=== PATIENT | male | born 1950 | race Caucasian/White ===

== ENCOUNTER 2021-03-18 13:14 | Inpatient (IN) | payer OTHER ==
--- OUTSIDE RECORDS SUMMARY | 2021-03-18 13:17 | XMS REPORT | Continuity of Care Document ---
:[address] [facility] t Address [address] [place] [address] Care Team Providers Name Role Phone CEDRIC Attending Clinician Unavailable MD ADELIA STEELE Attending Clinician Unavailable ATTAR Attending Clinician Unavailable Only, Test Attending Clinician Unavailable Irene RN Attending Clinician Unavailable Casa Redmond DO Attending Clinician Doctor Unassigned, Name Attending Clinician Unavailable CLEM Attending Clinician Unavailable Evan GARCIA R Attending Clinician Alondra GARCIA Attending Clinician CEDRIC Admitting Clinician Unavailable MD ADELIA STEELE Admitting Clinician Unavailable ATTAR Admitting Clinician Unavailable Problems This patient has no known problems. Allergies, Adverse Reactions, Alerts This patient has no known allergies or adverse reactions. Medications This patient has no known medications. Procedures This patient has no known procedures. Encounters Start End Encounter Admission Attending Care Care Encounter Source Date/Time Date/Time Type Type Clinicians Facility Department ID 2021-01-05 2021-01-05 Outpatient [facility] [id number] 00:00:00 00:00:[address] 2021-01-05 2021-01-05 Outpatient [facility] [id number] 00:00:00 00:00:[address] 2021-01-05 2021-01-05 Outpatient [facility] [id number] 00:00:00 00:00:[address] 2020-12-09 2020-12-10 [id number] 00:00:00 00:00:00 TONEY [address] 2020-12-05 2020-12-05 Outpatient CEDRIC, [facility] [id number] 00:00:00 00:00:00 TONEY [address] 2020-12-05 2020-12-05 Outpatient CEDRIC, [facility] [id number] 00:00:00 00:00:00 TONEY [address] 2020-12-05 2020-12-05 Outpatient CEDRIC, [facility] [id number] [place] 00:00:00 00:00:00 TONEY [address] 2020-11-07 2020-11-07 Outpatient ATTAR, [facility] [id number] 00:00:00 00:00:00 [place] [address] 2020-11-03 2020-11-03 Laboratory Only, [facility] [id number] 14:23:46 14:38:46 Only Test [place] [id number] [place] [id number] [place] [id number] 2020-11-03 2020-11-03 Letter Tari Bonilla [id number] 00:00:00 00:00:00 (Out) [place] [id number] [facility] [id number] 2020-11-03 2020-11-03 Patient Ruy [facility] [id number] 00:00:00 00:00:00 Outreach [facility] [id number] [facility] [id number] [place] [id number] 2020-11-03 2020-11-03 Orders Doctor BRANDI [id number] 00:00:00 00:00:00 Only Unassigned, [place] [id number] [place] [facility] [id number] 2020-10-09 2020-10-09 Outpatient CEDRIC, [facility] [id number] 00:00:00 00:00:00 TONEY [address] 2020-10-09 2020-10-09 Outpatient CEDRIC, [facility] [id number] 00:00:00 00:00:00 TONEY [address] [facility] 2020-09-11 2020-09-11 Outpatient CLEM, [facility] [id number] 00:00:00 00:00:00 DANIELLA 642 [address] i 2020-01-14 2020-01-14 [facility] 1.2.840.114 [id number] 15:18:54 15:28:54 ne Visit Lauro R [facility] [id number] [place] [id number] [place] [id number] [facility] 2020-01-14 2020-01-14 Sly Cantu [facility] [id number] 00:00:00 00:00:00 Management Cleopatra M[facility]ISPEC [id number] [facility] [id number] [place] [id number] [facility] 2019-12-10 2019-12-10 Patient Doctor [facility] [id number] 00:00:00 00:00:00 Secure Msg Unassigned, [place] [id number] [place] [facility] [id number] [place] [id number] [place] [id number] [facility] Results Test Description Test Time Test Comments Results Result Comments Source SARS-CoV-2 (COVID-19) RNA [Presence] in Respiratory sp ecimen by 2020-12-05 17:24:21 TARA with probe detection Test Item Value Reference Range Interpretation Comme nts SARS-CoV-2 (COVID-19) RNA [Presence] in Respiratory Not detected No t-Detected specimen by TARA with probe detection (test code = 05255-7)
--- NOTE | 2021-03-18 14:00 | RAD REPORT ---
EXAM DESCRIPTION: RAD - Chest Single View - 03/18/2021 1:42 pm CLINICAL HISTORY: CONGESTION COMPARISON: Chest Pa And Lat (2 Views) dated 09/05/2018; CHEST PA AND LAT 2 VIEW dated 02/13/2008; CHES T PA AND LAT 2 VIEW dated 08/03/2001 FINDINGS: Diffuse increased prominence of the pulmonary interstitium with areas of more confluent ai rspace disease in the lung bases and right mid lung. Cardiomegaly.No acute osseous abnormality. Diffi cult to exclude small effusions. IMPRESSION: Worsened airspace disease bilaterally which may reflect multifocal pneumonia and/or braulio a.
[2021-03-18 14:17] LABS: Absolute Lymphocytes (CBC) 0.5 K/uL (0.7-4.9); Basophils % 0.2 % (0-1.3); Hematocrit 43.3 % (39.6-49.0); Lymphocytes % 6.4 % (15.3-44.8); MPV 8.9 fL (7.6-11.3); RBC Red Blood Cell Count 4.86 M/uL (4.33-5.43)
[2021-03-18 14:22] LABS: Protime INR 1.15
[2021-03-18] MEDS ORDERED: METHYLPREDNISOLONE 125 MG INJ ONE (14:36)
[2021-03-18] MEDS ORDERED: NA CHLORIDE 0.9% 500 ML ONE (14:36)
[2021-03-18] MEDS ORDERED: NA CHLORIDE 0.9% 250 ML ONE (14:36)
[2021-03-18] MEDS ORDERED: AZITHROMYCIN 500 MG INJ IVPB ONE (14:36)
[2021-03-18] MEDS ORDERED: ENOXAPARIN 80 MG/0.8 ML SQ ONE (14:36)
[2021-03-18 14:48] LABS: Urine Blood Negative (Negative); Urine Glucose Negative (Negative); Urine Protein 2+ (Negative); Urine Specific Gravity >=1.030 (1.005-1.030); Urine pH 5.5 (5.0-7.0)
[2021-03-18 14:53] LABS: Albumin 3.3 g/dL (3.4-5.0); Bilirubin Direct 0.5 mg/dL (0-0.2); C-Reactive Protein 56.7 mg/L (<3.00); Potassium 3.4 mmol/L (3.5-5.1); Protein, Total 7.7 g/dL (6.4-8.2); Troponin (Emerg Dept Use Only) 0.06 ng/mL (0.0-0.045)
[2021-03-18 15:21] LABS: Blood Morphology Comment NOT SEEN (NOT SEEN); Platelet Estimate ADEQ; White Blood Cell Scan OK (OK)
[2021-03-18 15:59] LABS: Urine Bacteria <20 /HPF (NONE SEEN); Urine Mucus LIGHT /HPF (NONE SEEN); Urine RBC <5 /HPF (NONE SEEN)
--- NOTE | 2021-03-18 18:07 | EDPHYS ---
Physician Documentation [facility] Name: Jacque Owens Age: 70 yrs Sex: Male : 1950 Arrival Date: 03/18/2021 Time: 13:21 Bed 28 Private MD: ED Physician Carissa Richardson HPI: 03/18 15:19 This 70 yrs old Male presents to ER via Wheelchair with complaints of COVID+, ma2 Shortness Of Breath, Cough. 15:19 Onset: The symptoms/episode began/occurred gradually, 2 day(s) ago. Associated signs ma2 and symptoms: Pertinent negatives: diaphoresis, hemoptysis, loss of consciousness, nausea. Severity of symptoms: At their worst the symptoms were moderate in the emergency department the symptoms are unchanged. The patient has not experienced similar symptoms in the past. Historical: - Allergies: 13:31 No Known Allergies; ca1 - PMHx: 13:31 Asthma; Hypertensive disorder; ca1 - PSHx: 13:31 heart valve surgery; ca1 - Immunization history:: Client reports having NOT received the Covid vaccine. Pneumococcal vaccine is not up to date, Flu vaccine is not up to date. - Social history:: Smoking status: Patient denies any tobacco usage or history of. - Family history:: not pertinent. ROS: 15:19 Constitutional: Negative for fever, chills, and weight loss. ma2 15:19 All other systems are negative. Exam: 15:19 Constitutional: This is a well developed, well nourished patient who is awake, alert, ma2 and in no acute distress. Head/Face: Normocephalic, atraumatic. Eyes: Pupils equal round and reactive to light, extra-ocular motions intact. Lids and lashes normal. Conjunctiva and sclera are non-icteric and not injected. Cornea within normal limits. Periorbital areas with no swelling, redness, or edema. ENT: Nares patent. No nasal discharge, no septal abnormalities noted. Tympanic membranes are normal and external auditory canals are clear. Oropharynx with no redness, swelling, or masses, exudates, or evidence of obstruction, uvula midline. Mucous membranes moist. Neck: Trachea midline, no thyromegaly or masses palpated, and no cervical lymphadenopathy. Supple, full range of motion without nuchal rigidity, or vertebral point tenderness. No Meningismus. Chest/axilla: Normal chest wall appearance and motion. Nontender with no deformity. No lesions are appreciated. Cardiovascular: Regular rate and rhythm with a normal S1 and S2. No gallops, murmurs, or rubs. Normal PMI, no JVD. No pulse deficits. Abdomen/GI: Soft, non-tender, with normal bowel sounds. No distension or tympany. No guarding or rebound. No evidence of tenderness throughout. Back: No spinal tenderness. No costovertebral tenderness. Full range of motion. Skin: Warm, dry with normal turgor. Normal color with no rashes, no lesions, and no evidence of cellulitis. MS/ Extremity: Pulses equal, no cyanosis. Neurovascular intact. Full, normal range of motion. Neuro: Awake and alert, GCS 15, oriented to person, place, time, and situation. Cranial nerves II-XII grossly intact. Motor strength 5/5 in all extremities. Sensory grossly intact. Cerebellar exam normal. Normal gait. 15:19 Respiratory: mild respiratory distress is noted, Respirations: accessory muscle usage, that is mild, Breath sounds: rhonchi, are scattered, wheezing: Vital Signs: 13:27 BP 109 / 49; Pulse 81; Resp 20 S; Temp 99.2(O); Pulse Ox 64% on R/A; Weight 117.93 kg ca1 (R); Height 6 ft. 1 in. (185.42 cm) (R); Pain 4/10; 13:38 BP 106 / 66; Pulse 69; Resp 22; Pulse Ox 82% on 4 lpm NC; ca1 14:30 BP 113 / 67; Pulse 73; Resp 18; Pulse Ox 87% on 15 lpm NC; ld1 15:30 BP 97 / 51; Pulse 72; Resp 26; Pulse Ox 88% on 15% Venturi mask; ld1 16:15 BP 124 / 58; Pulse 81; Resp 26; Pulse Ox 78% on 15% Venturi mask; ld1 16:47 BP 115 / 66; Pulse 73; Resp 22; Pulse Ox 91% on 50% Non-rebreather mask; ld1 18:00 BP 115 / 61; Pulse 71; Resp 20; Temp 98.2(O); Pulse Ox 88% on NC; Pain 0/10; ld1 19:00 BP 132 / 69; Pulse 72; Resp 18; Pulse Ox 89% on 15 lpm NC; ld1 21:33 BP 117 / 62; Pulse 79; Resp 22; Pulse Ox 84% on 15 lpm NC; ld1 22:59 BP 115 / 60; Pulse 60; Resp 25; Pulse Ox 85% on 21% BiPAP; ld1 23:49 BP 105 / 68; Pulse 59; Resp 26; Pulse Ox 89% on 100% BiPAP; ld1 13:27 Body Mass Index 34.30 (117.93 kg, 185.42 cm) ca1 18:00 Hi Flow \T\ 40 ld1 19:00 HI RICO \T\ 40/100 ld1 21:33 Hi Rico \T\ 40/100 ld1 MDM: 13:46 Patient medically screened. ma2 15:19 Differential diagnosis: Anemia Anxiety Reaction Bronchitis pneumonia, reactive airway ma2 disease, Patient tested positive for Covid 2 days ago. Antibiotic administration: Data reviewed: vital signs, nurses notes, EMS record. 18:04 Response to treatment: the patient's symptoms have markedly improved after treatment. [facility] ED course: patient need to be transferred for hypoxemia and covid pneumonia, we do not have bed in the covid unit in [facility] . 03/18 13:35 Order name: BMP [facility] 03/18 13:35 Order name: Blood Culture Adult (2) [facility] 03/18 13:35 Order name: C-Reactive Protein [facility] 03/18 13:35 Order name: CBC with Diff [facility] 03/18 13:35 Order name: Ferritin [facility] 03/18 13:35 Order name: Flu [facility] 03/18 13:35 Order name: LFT's [facility] 03/18 13:35 Order name: Lactate [facility] 03/18 13:35 Order name: Lipase; Complete Time: 15:25 [facility] 03/18 13:35 Order name: PT-INR; Complete Time: 14:50 [facility] 03/18 13:35 Order name: Procalcitonin; Complete Time: 15:25 [facility] 03/18 13:35 Order name: Ptt, Activated; Complete Time: 14:50 [facility] 03/18 13:35 Order name: Strep; Complete Time: 14:50 [facility] 03/18 13:35 Order name: Troponin (emerg Dept Use Only); Complete Time: 15:25 [facility] 03/18 13:35 Order name: Urine Microscopic Only; Complete Time: 16:47 al2 03/18 13:35 Order name: Basic Metabolic Panel; Complete Time: 15:25 EDMS 03/18 13:35 Order name: Blood Culture [facility] 03/18 13:35 Order name: C-Reactive Protein; Complete Time: 15:25 MS 03/18 13:35 Order name: CBC with Automated Diff; Complete Time: 15:25 MS 03/18 13:35 Order name: Ferritin; Complete Time: 15:25 MS 03/18 13:35 Order name: Influenza Screen (A ; Complete Time: 14:50 EDMS 03/18 13:35 Order name: Liver (Hepatic) Function; Complete Time: 15:25 MS 03/18 13:35 Order name: Lactate; Complete Time: 14:50 MS 03/18 14:13 Order name: Glucose, Ancillary Testing; Complete Time: 14:50 MS 03/18 14:40 Order name: Throat Culture [facility] 03/18 14:47 Order name: Urine Dipstick-Ancillary; Complete Time: 14:50 [facility] 03/18 15:21 Order name: CBC Smear Scan; Complete Time: 15:25 MS 03/19 05:40 Order name: Troponin I [facility] 03/19 05:49 Order name: CBC with Automated Diff EDDE 03/19 05:50 Order name: Comprehensive Metabolic Panel [facility] 03/18 13:35 Order name: CXR XRAY; Complete Time: 14:06 al03/18 13:35 Order name: EKG; Complete Time: 13:35 al03/18 13:35 Order name: Cardiac monitoring; Complete Time: 14:14 03/18 13:35 Order name: Droplet/Contact Precautions; Complete Time: 14:14 al03/18 13:35 Order name: EKG - Nurse/Tech; Complete Time: 14:14 03/18 13:35 Order name: IV Start; Complete Time: 14:04 03/18 13:35 Order name: Labs collected and sent; Complete Time: 14:10 03/18 13:35 Order name: O2 Per Protocol; Complete Time: 14:04 al03/18 13:35 Order name: O2 Sat Monitoring; Complete Time: 14:04 03/18 13:35 Order name: Urine Dipstick-Ancillary (obtain specimen); Complete Time: 14:59 [facility] 03/18 16:22 Order name: Oxygen: via HFNC 100%; Complete Time: 16:43 [facility] 03/19 05:50 Order name: Lipid Profile [facility] 03/19 05:50 Order name: C-Reactive Protein [facility] 03/19 05:50 Order name: T4 Free [facility] 03/19 05:50 Order name: Magnesium [facility] 03/19 05:50 Order name: Thyroid Stimulating Hormone [facility] 03/19 05:50 Order name: Ferritin [facility] 03/19 06:36 Order name: Procalcitonin [facility] 03/19 08:04 Order name: US EDDE Administered Medications: 14:25 Drug: SOLU-Medrol (methylPrednisoLONE) 125 mg Route: IVP; Site: left antecubital; ld1 14:25 Drug: NS 0.9% 500 ml Route: IV; Rate: bolus; Site: left antecubital; ld1 14:25 Drug: AZITHromycin 500 mg Route: IVPB; Infused Over: 1 hrs; Site: left antecubital; ld1 14:25 Drug: Lovenox (enoxaparin) 80 mg Route: Sub-Q; Site: abdomen; ld1 15:51 Follow up: Response: No adverse reaction ld1 16:43 Drug: Albuterol HFA Inhaler 2 puffs Route: Inhalation; ld1 Disposition Summary: 03/18/21 18:38 Hospitalization Ordered Hospitalization Status: Inpatient Admission ma2 Provider: Zackery Thompson ma2 Condition: Stable(03/18/21 18:38) ma2 Problem: new(03/18/21 18:38) ma2 Symptoms: are unchanged(03/18/21 18:38) ma2 Bed/Room Type: Standard [facility] Location: Intensive Care Unit(03/19/21 14:42) ja1 Room Assignment: 1-(03/19/21 14:42) ja Diagnosis - Other pneumonia, unspecified organism - with covid - 19 ma2 Forms: - Medication Reconciliation Form ma2 - SBAR form ma2 Signatures: Dispatcher [employer] [facility] Onel Huang, LACEY-C PANEL BEATER-Shahbaz1 Kwame Gerard RN RN ja1 Carissa Richardson MD MD ma2 Saira Owen, RN RN ca1 Laura Kevin RN RN ld1 Corrections: (The following items were deleted from the chart) 13:32 13:31 Allergies: Aspirin; ca1 ca1 14:25 13:35 [place] ordered. ma2 ld1 18:37 18:07 OSH ma2 ma2 18:37 18:07 Other Acute Care Facility al2 ma2 18:37 18:07 Higher level of care al2 ma2 18:37 18:07 Stable ma2 ma2 18:37 18:07 new al2 ma2 18:37 18:07 are unchanged ma2 ma2 18:37 18:07 Other viral pneumonia - with + COVID - 19 ma2 ma2 18:37 18:07 Hypoxemia ma2 ma2 20:54 18:38 Telemetry/MedSurg (Inpatient) al2 la1 20:54 18:38 ma2 la1 03/19 14:42 03/18 20:54 [facility] HOLD [place] [id number] 03/19 14:42 03/18 20:54 ERHOLD- [place] [address]
--- NOTE | 2021-03-18 18:07 | ER ---
Nurse's Notes [facility] Name: Jacque Owens Age: 70 yrs Sex: Male : 1950 Arrival Date: 03/18/2021 Time: 13:21 Bed 28 Private MD: Diagnosis: Other pneumonia, unspecified organism-with covid - 19 Presentation: 03/18 13:27 Chief complaint: Patient states: Covid + . S/S 03/10/2021. Cough and SOB ca1 worsening. Coronavirus screen: Client reports previous positive COVID test result. Date of collection: March 08, 2021. Ebola Screen: Patient negative for fever greater than or equal to 101.5 degrees Fahrenheit, and additional compatible Ebola Virus Disease symptoms Patient denies exposure to infectious person. Patient denies travel to an Ebola-affected area in the 21 days before illness onset. No symptoms or risks identified at this time. Initial Sepsis Screen: Does the patient meet any 2 criteria? RR > 20 per min. Does the patient have a suspected source of infection? Yes: Productive cough/pneumonia If YES to both, name of provider notified: Carissa Richardson MD. Risk Assessment: Do you want to hurt yourself or someone else? Patient reports no desire to harm self or others. Onset of symptoms was March 10, 2021. 13:27 Method Of Arrival: Wheelchair ca1 13:27 Acuity: ANT 2 ca1 Historical: - Allergies: 13:31 No Known Allergies; ca1 - PMHx: 13:31 Asthma; Hypertensive disorder; ca1 - PSHx: 13:31 heart valve surgery; ca1 - Immunization history:: Client reports having NOT received the Covid vaccine. Pneumococcal vaccine is not up to date, Flu vaccine is not up to date. - Social history:: Smoking status: Patient denies any tobacco usage or history of. - Family history:: not pertinent. Screenin:05 Abuse screen: Denies threats or abuse. Denies injuries from another. Nutritional ld1 screening: No deficits noted. Tuberculosis screening: No symptoms or risk factors identified. Fall Risk None identified. Assessment: 14:05 General: Appears in no apparent distress. comfortable, Behavior is calm, cooperative, ld1 appropriate for age. Pain: Denies pain. Neuro: Level of Consciousness is awake, alert, obeys commands, Oriented to person, place, time, situation. Cardiovascular: Capillary refill < 3 seconds Patient's skin is warm and dry. Rhythm is sinus rhythm. Respiratory: Airway is patent Respiratory effort is even, unlabored, Respiratory pattern is regular, symmetrical, GI: Abdomen is round non-distended. : No signs and/or symptoms were reported regarding the genitourinary system. EENT: No signs and/or symptoms were reported regarding the EENT system. Derm: No signs and/or symptoms reported regarding the dermatologic system. Musculoskeletal: No signs and/or symptoms reported regarding the musculoskeletal system. 15:00 Reassessment: Patient appears in no apparent distress at this time. Patient and/or ld1 family updated on plan of care and expected duration. Pain level reassessed. Patient is alert, oriented x 3, equal unlabored respirations, skin warm/dry/pink. 16:00 Reassessment: Patient appears in no apparent distress at this time. RT at bedside. ld1 16:44 Reassessment: Patient appears in no apparent distress at this time. No changes from ld1 previously documented assessment. Patient and/or family updated on plan of care and expected duration. Pain level reassessed. Patient is alert, oriented x 3, equal unlabored respirations, skin warm/dry/pink. Patient denies pain at this time. 18:00 Reassessment: Patient appears in no apparent distress at this time. No changes from ld1 previously documented assessment. Patient and/or family updated on plan of care and expected duration. Pain level reassessed. Patient is alert, oriented x 3, equal unlabored respirations, skin warm/dry/pink. Patient denies pain at this time. 19:30 Reassessment: Patient appears in no apparent distress at this time. No changes from ld1 previously documented assessment. Patient and/or family updated on plan of care and expected duration. Pain level reassessed. 20:21 Reassessment: RT at bedside. ld1 21:33 Reassessment: Patient appears in no apparent distress at this time. Patient and/or ld1 family updated on plan of care and expected duration. Pain level reassessed. Patient is alert, oriented x 3, equal unlabored respirations, skin warm/dry/pink. Laying in bed talking on phone. Denies concerns at this time. 22:59 Reassessment: Patient appears in no apparent distress at this time. No changes from ld1 previously documented assessment. Patient and/or family updated on plan of care and expected duration. Pain level reassessed. Patient is alert, oriented x 3, equal unlabored respirations, skin warm/dry/pink. Patient denies pain at this time. 23:49 Reassessment: Patient appears in no apparent distress at this time. No changes from ld1 previously documented assessment. Patient and/or family updated on plan of care and expected duration. Pain level reassessed. Pt resting in bed right now. No signs of distress. RR 26. Vital Signs: 13:27 BP 109 / 49; Pulse 81; Resp 20 S; Temp 99.2(O); Pulse Ox 64% on R/A; Weight 117.93 kg ca1 (R); Height 6 ft. 1 in. (185.42 cm) (R); Pain 4/10; 13:38 BP 106 / 66; Pulse 69; Resp 22; Pulse Ox 82% on 4 lpm NC; ca1 14:30 BP 113 / 67; Pulse 73; Resp 18; Pulse Ox 87% on 15 lpm NC; ld1 15:30 BP 97 / 51; Pulse 72; Resp 26; Pulse Ox 88% on 15% Venturi mask; ld1 16:15 BP 124 / 58; Pulse 81; Resp 26; Pulse Ox 78% on 15% Venturi mask; ld1 16:47 BP 115 / 66; Pulse 73; Resp 22; Pulse Ox 91% on 50% Non-rebreather mask; ld1 18:00 BP 115 / 61; Pulse 71; Resp 20; Temp 98.2(O); Pulse Ox 88% on NC; Pain 0/10; ld1 19:00 BP 132 / 69; Pulse 72; Resp 18; Pulse Ox 89% on 15 lpm NC; ld1 21:33 BP 117 / 62; Pulse 79; Resp 22; Pulse Ox 84% on 15 lpm NC; ld1 22:59 BP 115 / 60; Pulse 60; Resp 25; Pulse Ox 85% on 21% BiPAP; ld1 23:49 BP 105 / 68; Pulse 59; Resp 26; Pulse Ox 89% on 100% BiPAP; ld1 13:27 Body Mass Index 34.30 (117.93 kg, 185.42 cm) ca1 18:00 Hi Flow \T\ 40 ld1 19:00 HI RICO \T\ 40/100 ld1 21:33 Hi Rico \T\ 40/100 ld1 ED Course: 13:21 Patient arrived in ED. mr 13:31 Triage completed. ca1 13:31 Arm band placed on right wrist. ca1 13:32 Patient placed in an exam room, on a stretcher, on oxygen, on telemetry monitor, on pulse ca1 oximetry. 13:33 Carissa Richardson MD is Attending Physician. ma2 13:33 Oxygen administration via nasal cannula \T\ 4L/min Response to oxygen therapy: symptoms ca1 improved. 13:42 CXR XRAY In Process Unspecified. EDMS 14:04 Saira Owen, ANDREW is Primary Nurse. ca1 14:05 Patient has correct armband on for positive identification. Placed in gown. Bed in low ld1 position. Call light in reach. Side rails up X2. quality assurance monitor on. Pulse ox on. NIBP on. Door closed. Noise minimized. Warm blanket given. 14:05 No provider procedures requiring assistance completed. Inserted saline lock: 20 gauge ld1 in left antecubital area, using aseptic technique. Blood collected. 14:11 Initial lab(s) drawn, by me, sent to lab. EKG done, by ED staff, reviewed by Carissa Richardson MD Flu and/or RSV swab sent to lab. Strep swab sent to lab. Inserted saline lock: 20 gauge in left antecubital area, using aseptic technique. Blood collected. 14:13 Liver (Hepatic) Function Sent. 5 14:13 Lactate Sent. 5 14:13 Ferritin Sent. 5 14:13 Influenza Screen (A Sent. 5 14:13 CBC with Automated Diff Sent. 5 14:13 Basic Metabolic Panel Sent. 5 14:13 Blood Culture Sent. 5 14:13 C-Reactive Protein Sent. 5 14:13 BMP Sent. 5 14:13 Blood Culture Adult (2) Sent. 5 14:13 C-Reactive Protein Sent. 5 14:13 CBC with Diff Sent. 5 14:13 Ferritin Sent. 5 14:13 Flu Sent. 5 14:13 LFT's Sent. 5 14:14 Lactate Sent. 5 14:14 Lipase Sent. 5 14:14 PT-INR Sent. 5 14:14 Procalcitonin Sent. [facility] 14:14 Ptt, Activated Sent. [facility] 14:14 Strep Sent. [facility] 14:14 Troponin (emerg Dept Use Only) Sent. 5 15:09 Inserted saline lock: 22 gauge in right antecubital area, using aseptic technique. 5 Patient did not have IV access during this emergency room visit. IV discontinued. 15:57 daughter [phone]. ct 16:26 initiated transfer to [facility] and [facility], all denied due mt to being at full capacity. 16:26 initiated transfer to [facility]. mt 16:43 Laura Kevin, ANDREW is Primary Nurse. ld1 17:01 [facility] denied due to full capacity. ct 18:37 Zackery Thompson MD is Hospitalizing Provider. ma2 Administered Medications: 14:25 Drug: SOLU-Medrol (methylPrednisoLONE) 125 mg Route: IVP; Site: left antecubital; ld1 14:25 Drug: NS 0.9% 500 ml Route: IV; Rate: bolus; Site: left antecubital; ld1 14:25 Drug: AZITHromycin 500 mg Route: IVPB; Infused Over: 1 hrs; Site: left antecubital; ld1 14:25 Drug: Lovenox (enoxaparin) 80 mg Route: Sub-Q; Site: abdomen; ld1 15:51 Follow up: Response: No adverse reaction ld1 16:43 Drug: Albuterol HFA Inhaler 2 puffs Route: Inhalation; ld1 Outcome: 18:07 ER care complete, transfer ordered by . ma2 18:38 Decision to Hospitalize by Provider. tn2 03/19 15:38 Patient left the ED. [facility] Signatures: Dispatcher [employer] EDGA Dm Nereyda NuñezCris Odilia Glover mt, Mohammad, MD MD ma2 Acob, Cheryl, RN RN ca1 Laura Kevin RN RN ld1 Corrections: (The following items were deleted from the chart) 03/18 13:32 13:31 Allergies: Aspirin; ca1 ca1 13:39 13:27 Ebola Screen: Patient negative for fever greater than or equal to 101.5 degrees ca1 Fahrenheit, and additional compatible Ebola Virus Disease symptoms Patient denies exposure to infectious person. Patient denies travel to an Ebola-affected area in the 21 days before illness onset. No symptoms or risks identified at this time. ca1 13:39 13:27 Initial Sepsis Screen: Does the patient meet any 2 criteria? No. Patient's ca1 initial sepsis screen is negative. Does the patient have a suspected source of infection? No. Patient's initial sepsis screen is negative. ca1 13:41 13:38 BP 106 / 66; Pulse 69bpm; Resp 22bpm; Pulse Ox 77% 4 lpm Nasal Cannula; ca1 ca1 23:52 23:49 Pulse 76bpm; Resp 19bpm; Pulse Ox 100% RA; ld1 ld1
--- NOTE | 2021-03-18 21:14 | P.HP ---
Certification for Inpatient Patient admitted to: Inpatient With expected LOS: >2 Midnights Patient will require the following post-hospital care: None Practitioner: I am a practitioner with admitting privileges, knowledge of patient current condition, hospital course, and medical plan of care. Services: Services provided to patient in accordance with Admission requirements found in Title 42 Section 412.3 of the Code of Federal Regulations Patient History Date of Service: 03/18/21 Primary Care Provider: Unknown, cardiology Dr. Pritchett Reason for admission: COVID-19 pneumonia History of Present Illness: 70-year-old male with history of hypertension, asthma, valve replacement approximately 1 month ago presents the emergency department for shortness of breath. Patient reports testing positive for Covid on 03/11/2021. Upon arrival to the [place] apartment patient was saturating 64% on room air, patient was placed on high flow oxygen, currently saturating between 88 and 92% on 100% FiO2 at 40 L on high flow. Labs were significant for potassium 3.4 BUN 33 GFR 66 ferritin 4083 AST 131 ALT 123 troponin 0 0.06 C-reactive protein 56.7 procalcitonin 0.08 white blood cell count within normal limits. Patient given Solu-Medrol in the emergency department, ED provider wishes to admit for further evaluation and management. Attempted transfer to tertiary centers but was declined due to capacity. Chest x-ray demonstrates multifocal pneumonia, patient with history of pulmonary fibrosis. Discussed advanced directives with patient at length, at this time we will proceed with full code, patient to make further decisions about wishes for possible DO NOT INTUBATE in the future. 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 moist/pink, EOMI, Sclerae nonicteric Neck: Supple, 2+ carotid pulse no bruit, No LAD, Without JVD or thyroid abnormality Respiratory: Diminished, Other (Tachypnea, dyspnea) Cardiovascular: Regular rate/rhythm, Normal S1 S2 Gastrointestinal: Normal bowel sounds, No tenderness Musculoskeletal: No tenderness Integumentary: No rashes Neurological: Normal gait, Normal speech, Normal strength at 5/5 x4 extr, Normal tone, Normal affect Lymphatics: No axilla or inguinal lymphadenopathy - Studies Laboratory Data (last 24 hrs) 03/18/21 14:04: PT 13.3 H, INR 1.15, APTT 25.2 03/18/21 14:04: WBC 7.30, Hgb 14.8, Hct 43.3, Plt Count 169 03/18/21 14:04: Sodium 136, Potassium 3.4 L, BUN 33 H, Creatinine 1.10, Glucose 103, Total Bilirubin 1.0, AST 131 H, ALT 123 H, Alkaline Phosphatase 93, Lipase 50 L Microbiology Data (last 24 hrs): 03/18/21 14:08 Nasopharnyx Influenza Type A Antigen Screen - Final 03/18/21 14:08 Nasopharnyx Influenza Type B Antigen Screen - Final 03/18/21 14:08 Throat Group A Streptococcus Rapid Screen - Final Assessment and Plan - Plan Assessment: Acute hypoxic respiratory failure secondary to bilateral COVID-19 pneumonia complicated with history of asthma/pulmonary fibrosis Hypertension History of valve replacement Plan: Acute hypoxic respiratory failure secondary to bilateral COVID-19 pneumonia complicated with history of asthma/pulmonary fibrosis: Pulmonology consulted, continue with supplemental oxygen as needed including BiPAP and high flow oxygen. Continue with IV steroids, oral supplements. DVT prophylaxis Lovenox 40 g again once daily. Continue with daily aspirin as well. Patient LFTs mildly elevated, likely not candidate at this time for remdesivir or barcitinib. Appreciate further input from pulmonology. Patient with high levels of oxygen requirement on admission, prognosis guarded, this was discussed with patient at this time continue as full code but he is questioning whether he would like to be on a ventilator. We will need to readdress this at a later time. Hypertension: Obtain continue medications as appropriate. History of valve replacement: Obtain continue medications, likely aortic valve repair but patient poor historian, unsure of this. Will obtain continue medications, appears stable this time. Will trend troponin as first 1 was very mildly elevated. Consult cardiology as necessary. DVT PPX: Lovenox Code status: Full codepatient "thinking about" if he wants to be on a ventilator if this was required. We will need to readdress. Discharge Plan: Home Plan to discharge in: Greater than 2 days - Advance Directives Does patient have a Living Will: No Does patient have a Durable POA for Healthcare: No - Code Status/Comfort Care Code Status Assessed: Yes (Full code) Time Spent Managing Pts Care (In Minutes): 55
[2021-03-19] MEDS ORDERED: MELATONIN 5 MG TABLET PO PRN (01:44)
[2021-03-19] MEDS ORDERED: ONDANSETRON 4 MG/2 ML VIAL IV PRN (01:44)
[2021-03-19] MEDS ORDERED: BENZONATATE 100 MG CAP PO ONE (02:39)
[2021-03-19] MEDS: BENZONATATE 100 MG CAP PO PRN (02:45)
[2021-03-19 05:24] LABS: Absolute Lymphocytes (CBC) 0.6 K/uL (0.7-4.9); Basophils % 0.1 % (0-1.3); Hematocrit 41.6 % (39.6-49.0); Lymphocytes % 12.9 % (15.3-44.8); MPV 10.1 fL (7.6-11.3); RBC Red Blood Cell Count 4.68 M/uL (4.33-5.43)
[2021-03-19 05:50] LABS: ALT/SGPT 156 U/L (12-78); AST/SGOT 184 U/L (15-37); Albumin 2.9 g/dL (3.4-5.0); Alkaline Phosphatase 97 U/L (45-117); BUN Blood Urea Nitrogen 33 mg/dL (7-18); Bicarbonate 26 mmol/L (21-32); Bilirubin Total 0.7 mg/dL (0.2-1.0); Ferritin 5254.3 ng/mL (26-388); Glucose Level 126 mg/dL (74-106); HDL Cholesterol 36 mg/dL (40-60); LDL Cholesterol, Calculated 86 (<130); Magnesium 2.6 mg/dL (1.8-2.4); Potassium 3.7 mmol/L (3.5-5.1); Sodium Level 140 mmol/L (136-145); Thyroid Stimulating Hormone 0.386 uIU/mL (0.360-3.740)
--- NOTE | 2021-03-19 06:39 | P.PN ---
Subjective Date of Service: 03/19/21 Primary Care Provider: Unknown, cardiology Dr. Pritchett Chief Complaint: COVID-19 pneumonia Subjective: Improving (90-94% on 100% FIO2 BIPAP, feeling a little better. ferritin increased) Review of Systems 10-point ROS is otherwise unremarkable Physical Examination - Studies Laboratory Data (last 24 hrs) 03/18/21 14:04: PT 13.3 H, INR 1.15, APTT 25.2 03/18/21 14:04: WBC 7.30, Hgb 14.8, Hct 43.3, Plt Count 169 03/18/21 14:04: Sodium 136, Potassium 3.4 L, BUN 33 H, Creatinine 1.10, Glucose 103, Total Bilirubin 1.0, AST 131 H, ALT 123 H, Alkaline Phosphatase 93, Lipase 50 L Microbiology Data (last 24 hrs): 03/18/21 14:08 Nasopharnyx Influenza Type A Antigen Screen - Final 03/18/21 14:08 Nasopharnyx Influenza Type B Antigen Screen - Final 03/18/21 14:08 Throat Group A Streptococcus Rapid Screen - Final Assessment & Plan Physician Review Additional Text: Physical Exam General: Alert, NAD, AAOx3 HEENT: normal conjunctiva, BIPAP mask in place Respiratory: Diminished, nonlabored on BIPAP: FiO2 100% Cardiovascular: Regular rate/rhythm, Normal S1 S2 Gastrointestinal: Soft, nontender, nondistended Musculoskeletal: No tenderness Integumentary: No rashes Problem list Acute hypoxic respiratory failure secondary to bilateral COVID-19 pneumonia complicated with history of asthma/pulmonary fibrosis Hypertension History of valve replacement -Significantly elevated ferritin over 5000. -Patient with prior pulmonary history, high risk for complicated Covid -Pharmacy consulted for baricitinib -Continue treatment per Covid protocol, IV steroids, oral supplements, DVT prophylaxis -Wean oxygen as tolerated -Pulmonology consulted -currently full code -trop downtrending - no chest pain/pressure, likely demand ischemia in setting of covid / hypoxia Dispo: anticipate hospitalization > 2days Time Spent Managing Pts Care (In Minutes): 45
--- NOTE | 2021-03-19 08:04 | RAD REPORT ---
EXAM DESCRIPTION: US - Liver Only - 03/19/2021 7:07 am CLINICAL HISTORY: elevated LFT COMPARISON: No comparisons FINDINGS: The liver demonstrates diffuse fatty infiltration.No focal liver lesion or intrahepatic bi liary dilatation.No evidence of portal vein thrombosis. IMPRESSION: Hepatic steatosis, otherwise unremarkable.
[2021-03-19] MEDS: METHYLPREDNISOLONE 40 MG INJ IV SCH ×3 (08:15→20:11)
[2021-03-19] MEDS: ASCORBIC ACID 500 MG TABLET PO SCH ×4 (08:15→20:11)
[2021-03-19] MEDS: ZINC SULFATE 220 MG CAP PO SCH (08:15)
[2021-03-19] MEDS: VITAMIN D 1000 UNIT TAB PO SCH (08:16)
[2021-03-19] MEDS: THIAMINE HCL 100 MG TABLET PO SCH (08:16)
[2021-03-19] MEDS ORDERED: ZINC SULFATE 220 MG CAP ONE (08:20)
[2021-03-19] MEDS ORDERED: VITAMIN D 1000 UNIT TAB ONE (08:21)
[2021-03-19] MEDS ORDERED: ASCORBIC ACID 500 MG TABLET ONE ×3 (08:21→11:56)
[2021-03-19] MEDS ORDERED: THIAMINE HCL 100 MG TABLET ONE (08:21)
[2021-03-19] MEDS ORDERED: ASPIRIN EC 81 MG TAB PO ONE (08:21)
[2021-03-19] MEDS ORDERED: METHYLPREDNISOLONE 40 MG INJ ONE ×2 (08:36→13:51)
[2021-03-19] MEDS ORDERED: BARICITINIB 2 MG TABLET PO SCH (09:00)
[2021-03-19] MEDS ORDERED: ASPIRIN EC 81 MG TAB PO SCH (09:00)
--- NOTE | 2021-03-19 11:02 | EKG ---
Test Date: 2021-03-18 Test Time: 13:52:35 Seaweed Harvester: MARIA INES MEASUREMENT RESULTS: Intervals: Rate: 73 VT: 182 QRSD: 104 QT: 430 QTc: 473 Pickrell: P: 74 VT: 182 QRS: 51 T: 37 INTERPRETIVE STATEMENTS: Sinus rhythm with occasional premature ventricular complexes Otherwise normal ECG No previous ECG available for comparison Electronically Signed On 03-19-21 10:58:55 CDT by Kvng Bailey
[2021-03-19] MEDS ORDERED: POTASSIUM CL SA 10 MEQ TAB PO ONE ×2 (11:07→11:55)
[2021-03-19] MEDS: ATORVASTATIN 40 MG TAB PO SCH (20:11)
[2021-03-20] MEDS: BENZONATATE 100 MG CAP PO PRN (01:35)
[2021-03-20 03:59] VITALS: BMI 33.5
[2021-03-20] MEDS: HYDROCODONE/CHLORPHEN 5 ML/OSYR PO PRN (05:06)
[2021-03-20 05:30] LABS: Absolute Lymphocytes (CBC) 0.5 K/uL (0.7-4.9); Basophils % 0.1 % (0-1.3); Hematocrit 41.8 % (39.6-49.0); Lymphocytes % 4.3 % (15.3-44.8); MPV 9.2 fL (7.6-11.3); RBC Red Blood Cell Count 4.66 M/uL (4.33-5.43)
[2021-03-20 06:17] LABS: ALT/SGPT 147 U/L (12-78); AST/SGOT 143 U/L (15-37); Albumin 2.8 g/dL (3.4-5.0); Alkaline Phosphatase 108 U/L (45-117); BUN Blood Urea Nitrogen 30 mg/dL (7-18); Bicarbonate 29 mmol/L (21-32); Bilirubin Total 0.8 mg/dL (0.2-1.0); Ferritin 4313.9 ng/mL (26-388); Glucose Level 127 mg/dL (74-106); Magnesium 2.5 mg/dL (1.8-2.4); Potassium 3.9 mmol/L (3.5-5.1); Protein, Total 6.7 g/dL (6.4-8.2); Sodium Level 142 mmol/L (136-145)
--- NOTE | 2021-03-20 07:20 | RAD REPORT ---
EXAM DESCRIPTION: RAD - Chest Single View - 03/20/2021 6:10 am CLINICAL HISTORY: COVID-19 pneumonia COMPARISON: March 18 TECHNIQUE: AP portable chest image was obtained 03/20/2021 6:10 am . FINDINGS: Diffuse airspace opacification is again noted with relative sparing of the left upper lung field. Pattern is not clearly different when adjusting for technique differences. Subtle increase in lung parenchymal density is believed to be the affects of under penetrated technique and more shallo w inspiratory effort. Heart size is prominent but stable. No vascular engorgement. Trachea is midline. No measurable pleur al effusion and no pneumothorax. No acute bony abnormality seen. No acute aortic findings suspected. IMPRESSION: Diffuse COVID-19 pneumonia pattern not clearly different from March 18 imaging.
[2021-03-20] MEDS ORDERED: POTASSIUM CL SA 10 MEQ TAB PO ONE (08:00)
[2021-03-20] MEDS: ZINC SULFATE 220 MG CAP PO SCH (08:16)
[2021-03-20] MEDS: VITAMIN D 1000 UNIT TAB PO SCH (08:16)
[2021-03-20] MEDS: ASCORBIC ACID 500 MG TABLET PO SCH ×4 (08:17→20:33)
[2021-03-20] MEDS: THIAMINE HCL 100 MG TABLET PO SCH (08:17)
[2021-03-20] MEDS: APIXABAN 5 MG TABLET PO SCH ×2 (08:17→20:32)
[2021-03-20] MEDS: METHYLPREDNISOLONE 40 MG INJ IV SCH ×3 (08:17→20:47)
--- NOTE | 2021-03-20 09:39 | P.CNS ---
Date of Consult: 03/20/21 (Pt agree to TV) Primary Care Provider: Unknown, cardiology Dr. Pritchett Chief Complaint: COVID-19 pneumonia History of Present Illness: Age 70 AW pneumonia from COVI, resp failureacute, pos 03/11/ 100% Fio2 Allergies No Known Allergies Allergy (Unverified 03/19/21 01:43) Home Medications: Albuterol Inhaler [Ventolin Inhaler*] 2 puff IH TID PRN 03/19/21 Amlodipine Besylate 1 tab PO BEDTIME 03/19/21 Aspirin [Aspirin EC 81 MG] 1 tab PO DAILY 03/19/21 Atorvastatin Calcium 1 tab PO DAILY 03/19/21 Fluticasone [Flonase 50MCG Nasal [place]*] 2 sprays SILVANA DAILY 03/19/21 Furosemide 1 tab PO DAILY 03/19/21 Potassium Chloride 1 tab PO DAILY 03/19/21 - Past Medical/Surgical History Diabetic: No -: Hypertension -: Asthma -: Rib Fx from Fall 2 yrs ago -: Valve replacement 2020 Psychosocial/ Personal History: 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 Extensive changes on CXRY, Jett EPAP 12-15, Sat 90%, Elevated LFT, not a candidate for Barcitinib, Will await for PFT to improve, CRP elevated OA. US fatty liver
--- NOTE | 2021-03-20 10:39 | P.PN ---
Subjective Date of Service: 03/20/21 Primary Care Provider: Unknown, cardiology Dr. Pritchett Chief Complaint: COVID-19 pneumonia Subjective: Other (Patient feels like he is breathing a little bit more comfortably today. Still requiring 100% FiO2 ferritin remains significantly elevated but with slight improvement today. Patient states today that he has decided he does not want to be intubated even if it were to mainline for .) Review of Systems 10-point ROS is otherwise unremarkable Physical Examination - Vital Signs Temperature: 96.8 F Blood Pressure: 104/64 Pulse: 63 Respirations: 24 Pulse Ox (%): 87 - Studies Microbiology Data (last 24 hrs): 03/18/21 14:08 Throat Culture & Sensitivity - Final NORMAL UPPER RESPIRATORY CECELIA GROWN. 03/18/21 14:45 Blood - Blood Anaerobic Blood Culture - Final Assessment & Plan Physician Review Additional Text: Physical Exam General: Alert, NAD, AAOx3 HEENT: normal conjunctiva, BIPAP mask in place Respiratory: Diminished, b/l crackles, nonlabored on BIPAP: FiO2 100% Cardiovascular: Regular rate/rhythm, Normal S1 S2 Gastrointestinal: Soft, nontender, nondistended Musculoskeletal: No tenderness Integumentary: No rashes Problem list Acute hypoxic respiratory failure secondary to bilateral COVID-19 pneumonia complicated with history of asthma/pulmonary fibrosis Hypertension Hepatic steatosis History of valve replacement -Significantly elevated ferritin over 5000 with slight improvement today -Patient with prior pulmonary history, high risk for complicated Covid -Pharmacy consulted for baricitinib - not candidate -also with mildly elevated LFTs -Continue treatment per Covid protocol, IV steroids, oral supplements, DVT prophylaxis -Wean oxygen as tolerated -Pulmonology consulted -DO NOT INTUBATE -trop downtrending - no chest pain/pressure, likely demand ischemia in setting of covid / hypoxia Dispo: anticipate hospitalization > 2days Time Spent Managing Pts Care (In Minutes): 40
[2021-03-20] MEDS: SPIRONOLACTONE 25 MG TABLET PO SCH (12:29)
[2021-03-20 15:47] LABS: Arterial Blood Carboxyhemoglob 0.6 % (0-1.5); Blood O2 Saturation 92.4 % (92-98.5)
[2021-03-20] MEDS: ATORVASTATIN 40 MG TAB PO SCH (20:32)
[2021-03-20] MEDS: FAMOTIDINE 20 MG TAB PO SCH (20:33)
[2021-03-21 05:15] LABS: Absolute Lymphocytes (CBC) 0.4 K/uL (0.7-4.9); Basophils % 0.1 % (0-1.3); Hematocrit 42.7 % (39.6-49.0); MPV 9.7 fL (7.6-11.3); RBC Red Blood Cell Count 4.79 M/uL (4.33-5.43)
[2021-03-21 05:52] LABS: ALT/SGPT 167 U/L (12-78); AST/SGOT 129 U/L (15-37); Albumin 2.8 g/dL (3.4-5.0); Alkaline Phosphatase 133 U/L (45-117); BUN Blood Urea Nitrogen 28 mg/dL (7-18); Bicarbonate 30 mmol/L (21-32); Ferritin 3781.6 ng/mL (26-388); Glucose Level 124 mg/dL (74-106); Magnesium 2.4 mg/dL (1.8-2.4); Potassium 4.2 mmol/L (3.5-5.1); Protein, Total 6.5 g/dL (6.4-8.2); Sodium Level 144 mmol/L (136-145)
--- NOTE | 2021-03-21 07:57 | P.PN ---
Subjective Date of Service: 03/21/21 Primary Care Provider: Unknown, cardiology Dr. Pritchett Chief Complaint: COVID-19 pneumonia Subjective: Other (feels like breathing more easily, FiO2 90-100%, no new complaints, inflammatory markers improved, d-dimer significant increased.) Review of Systems 10-point ROS is otherwise unremarkable Physical Examination - Vital Signs Temperature: 97.6 F Blood Pressure: 117/75 Pulse: 62 Respirations: 29 Pulse Ox (%): 91 - Studies Microbiology Data (last 24 hrs): 03/18/21 14:08 Throat Culture & Sensitivity - Final NORMAL UPPER RESPIRATORY CECELIA GROWN. Assessment & Plan Physician Review Additional Text: Physical Exam General: AAOx3, laying on side HEENT: normal conjunctiva, BIPAP mask in place Respiratory: Diminished bilaterally, b/l crackles, nonlabored on BIPAP: FiO2 100% Cardiovascular: Regular rate/rhythm, Normal S1 S2, trace b/l pedal edema Gastrointestinal: Soft, nontender, nondistended Musculoskeletal: No tenderness Integumentary: No rashes Problem list Acute hypoxic respiratory failure secondary to bilateral COVID-19 pneumonia complicated with history of asthma/possible pulmonary fibrosis Hypertension Hepatic steatosis History of valve replacement earlier this year -Significantly elevated ferritin over 5000, downtrending, CRP improving -Patient with prior pulmonary history - asthma, he has always been concerned for lung issues due to 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 working 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, high risk for complicated Covid -Pharmacy consulted for baricitinib - not candidate due to not significantly elevated CRP and also with mildly elevated LFTs -Continue treatment per Covid protocol, IV steroids, oral supplements, DVT prophylaxis -Wean oxygen as tolerated -Pulmonology consulted, added spironolactone 03/20, ivermectin 03/21 -patient states he does not want to be intubated -CXR worsening -d-dimer significantly increased, on eliquis -on lasix at home, will start daily IV lasix 40mg today -trop downtrending - no chest pain/pressure, likely demand ischemia in setting of covid / hypoxia Dispo: anticipate hospitalization > 2days Time Spent Managing Pts Care (In Minutes): 40
[2021-03-21] MEDS: METHYLPREDNISOLONE 40 MG INJ IV SCH ×3 (08:45→19:44)
[2021-03-21] MEDS: ASCORBIC ACID 500 MG TABLET PO SCH ×4 (08:45→19:44)
[2021-03-21] MEDS: VITAMIN D 1000 UNIT TAB PO SCH (08:45)
[2021-03-21] MEDS: THIAMINE HCL 100 MG TABLET PO SCH (08:45)
[2021-03-21] MEDS: APIXABAN 5 MG TABLET PO SCH ×2 (08:45→19:43)
[2021-03-21] MEDS: FAMOTIDINE 20 MG TAB PO SCH ×2 (08:46→19:44)
[2021-03-21] MEDS: SPIRONOLACTONE 25 MG TABLET PO SCH (08:46)
[2021-03-21] MEDS: ZINC SULFATE 220 MG CAP PO SCH (08:46)
[2021-03-21] MEDS: HYDROCODONE/CHLORPHEN 5 ML/OSYR PO PRN ×2 (08:47→19:44)
[2021-03-21 09:14] LABS: Protime INR 1.29
[2021-03-21] MEDS ORDERED: FUROSEMIDE 40 MG/4 ML VIAL IV SCH (10:00)
--- NOTE | 2021-03-21 10:11 | P.PN ---
Subjective Date of Service: 03/21/21 (TV) Primary Care Provider: Unknown, cardiology Dr. Pritchett Chief Complaint: COVID-19 pneumonia Worsening, resp failure Sig desat Review of Systems Respiratory: Shortness of Breath Physical Examination - Vital Signs Temperature: 97.6 F Blood Pressure: 117/75 Pulse: 62 Respirations: 29 Pulse Ox (%): 91 - Studies Microbiology Data (last 24 hrs): 03/18/21 14:08 Throat Culture & Sensitivity - Final NORMAL UPPER RESPIRATORY CECELIA GROWN. Assessment & Plan - Problems (Diagnosis) (1) COVID Current Visit: Yes Status: Acute Plan: Resp failure Not doing well, Add ivermectin, Does not qualify for Barcitinib. In crease BIPAP pressure, ./ Pt on Lasix at home/severe ILD. Low dose lasix. avoid volume depletion/daily CRP
--- NOTE | 2021-03-21 10:36 | RAD REPORT ---
EXAM DESCRIPTION: Miki Single View03/21/2021 6:55 am CLINICAL HISTORY: Chest pain COMPARISON: March 20, 2021 FINDINGS: No significant change the extensive right and moderate to marked left pulmonary opacities. Heart remains enlarged IMPRESSION: No change in the bilateral pulmonary opacities probably pneumonia
[2021-03-21] MEDS: IVERMECTIN 3 MG TABLET PO SCH (14:02)
[2021-03-21] MEDS: ATORVASTATIN 40 MG TAB PO SCH (19:43)
[2021-03-22 05:14] LABS: Absolute Lymphocytes (CBC) 0.5 K/uL (0.7-4.9); Basophils % 0.1 % (0-1.3); Hematocrit 44.8 % (39.6-49.0); Lymphocytes % 3.3 % (15.3-44.8); MPV 9.6 fL (7.6-11.3); RBC Red Blood Cell Count 5.09 M/uL (4.33-5.43)
[2021-03-22 06:09] LABS: ALT/SGPT 186 U/L (12-78); AST/SGOT 121 U/L (15-37); Alkaline Phosphatase 151 U/L (45-117); BUN Blood Urea Nitrogen 33 mg/dL (7-18); Bicarbonate 33 mmol/L (21-32); Glucose Level 137 mg/dL (74-106); Magnesium 2.5 mg/dL (1.8-2.4); Potassium 3.8 mmol/L (3.5-5.1); Protein, Total 6.9 g/dL (6.4-8.2); Sodium Level 146 mmol/L (136-145)
[2021-03-22 06:46] LABS: Bilirubin Total 1.4 mg/dL (0.2-1.0); Ferritin 3280.1 ng/mL (26-388)
--- NOTE | 2021-03-22 07:33 | RAD REPORT ---
EXAM DESCRIPTION: RAD - Chest Single View - 03/22/2021 6:49 am CLINICAL HISTORY: COVID COMPARISON: Chest Single View dated 03/21/2021; Chest Single View dated 03/20/2021; Chest Single View dated 03/18/2021; Chest Pa And Lat (2 Views) dated 09/05/2018 FINDINGS: Widespread bilateral interstitial airspace disease with areas of consolidation complicated left lung base. This is similar to yesterday. The heart size is within normal limits.No acute osseou s abnormality. Difficult to exclude small effusions. IMPRESSION: No significant change compared with 03/21/2021. Widespread airspace disease consistent w ith multifocal pneumonia.
--- NOTE | 2021-03-22 08:16 | P.PN ---
Subjective Date of Service: 03/22/21 Primary Care Provider: Unknown, cardiology Dr. Pritchett Chief Complaint: COVID-19 pneumonia Subjective: No new changes (He states he feels like his breathing a little bit more comfortably/easily today. SPO2 90% when laying on side, drops to 82% only on back. On BiPAP FiO2 100%. Unable to tolerate coming off mask for more than a few seconds due to hypoxia. Patient agreeable to Dobbhoff.) Review of Systems 10-point ROS is otherwise unremarkable Physical Examination - Vital Signs Temperature: 97.6 F Blood Pressure: 119/100 Pulse: 87 Respirations: 28 Pulse Ox (%): 82 Assessment & Plan Physician Review Additional Text: Physical Exam General: AAOx3, laying on side HEENT: normal conjunctiva, face flushed, BIPAP mask in place Respiratory: Diminished bilaterally, b/l crackles, on BIPAP: FiO2 100% Cardiovascular: Regular rate/rhythm, Normal S1 S2, trace b/l edema just above ankles Gastrointestinal: Soft, nontender, nondistended Integumentary: No rashes Neuro: AAOx3, moves all extremities Problem list Acute hypoxic respiratory failure secondary to bilateral COVID-19 pneumonia complicated with history of asthma/pulmonary fibrosis Hypertension Hepatic steatosis h/o pulmonary fibrosis History of valve replacement earlier this year -Significantly elevated ferritin over 5000 early in hospitalization, downtrending, CRP improving -Patient with prior pulmonary history - questionble asthma diagonosis, prior CT with pulm fibrosis. he has always been concerned for lung issues due to prior working 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, high risk for complicated Covid -Pharmacy consulted for baricitinib - not candidate due to not significantly elevated CRP and also with elevated LFTs -Continue treatment per Covid protocol, IV steroids, oral supplements, eliquis -Wean oxygen as tolerated -Pulmonology consulted, added spironolactone 03/20, ivermectin 03/21 -at time of admission, pt reported not wanting to be intubated, spoke with family yesterday and decided he wants to be full code, intubated only as last resort -CXR improving -d-dimer continues to increase, fibrinogen borderline low yesterday, platelets stable without thrombocytopenia As seen in Covid, possible seeing the onset of DIC, awaiting fibrinogen level today -Continue Eliquis -on lasix at home, given IV lasix 40mg on 03/21, good UOP response, with slight hypernatremia today, also on spironolactone, will hold lasix this AM -pt has not been able to take much PO in last few days due to hypoxia, agreeable to dobhoff 03/22, will start bolus feeds once placed -trop downtrended - no chest pain/pressure, likely demand ischemia in setting of covid / hypoxia VTE: eliquis Diet: regular, tube feeds via dobhoff Dispo: anticipate hospitalization > 2days, continue ICU level of care Guarded prognosis Time Spent Managing Pts Care (In Minutes): 45
[2021-03-22] MEDS: THIAMINE HCL 100 MG TABLET PO SCH (09:39)
[2021-03-22] MEDS: APIXABAN 5 MG TABLET PO SCH ×2 (09:40→20:24)
[2021-03-22] MEDS: ZINC SULFATE 220 MG CAP PO SCH (09:40)
[2021-03-22] MEDS: VITAMIN D 1000 UNIT TAB PO SCH (09:40)
[2021-03-22] MEDS: FAMOTIDINE 20 MG TAB PO SCH ×2 (09:40→20:24)
[2021-03-22] MEDS: ASCORBIC ACID 500 MG TABLET PO SCH ×4 (09:40→20:24)
[2021-03-22] MEDS: SPIRONOLACTONE 25 MG TABLET PO SCH (09:40)
[2021-03-22] MEDS: METHYLPREDNISOLONE 40 MG INJ IV SCH ×2 (09:48→17:23)
[2021-03-22 10:23] LABS: Platelet Estimate ADEQ; Platelets, Giant NOTED
[2021-03-22 10:24] LABS: Blood Morphology Comment NOT SEEN (NOT SEEN)
--- NOTE | 2021-03-22 11:03 | RAD REPORT ---
EXAM DESCRIPTION: RAD - Abdomen 1 View (KUB) - 03/22/2021 10:39 am CLINICAL HISTORY: Dobbhoff placement COMPARISON: Chest Single View dated 03/22/2021 FINDINGS: Interval placement of a weighted feeding tube with tip in the region of the distal stomach /proximal duodenum. IMPRESSION: Weighted feeding tube tip in the distal stomach/proximal duodenum.
[2021-03-22 11:54] LABS: Protime INR 1.36
[2021-03-22] MEDS ORDERED: JEVITY 1.2 CAL LIQUID 1,000 ML BOT FT SCH (12:00)
[2021-03-22] MEDS: JEVITY 1.2 CAL LIQUID 1,000 ML BOT FT SCH ×2 (12:56→17:23)
[2021-03-22] MEDS ORDERED: ASPIRIN EC 81 MG TAB PO SCH (14:56)
--- NOTE | 2021-03-22 14:57 | P.PN ---
Subjective Date of Service: 03/22/21 Primary Care Provider: Unknown, cardiology Dr. Pritchett Chief Complaint: COVID-19 pneumonia Stable. Severe COVID penumonia on max support Review of Systems General: Weakness Respiratory: Shortness of Breath Physical Examination - Vital Signs Temperature: 97.8 F Blood Pressure: 120/78 Pulse: 91 Respirations: 29 Pulse Ox (%): 91 Assessment & Plan - Problems (Diagnosis) (1) COVID Current Visit: Yes Status: Acute Plan: Resp failure/ Dobhoff for tube feeds, BIPAP 18/15, 100% Fio2, CXRY severe COVID, Midlhypernatremia, labs reviewed, NC Prone vent/ add asprin
[2021-03-22] MEDS: ASPIRIN 81 MG CHEWABLE TABLET PO SCH (17:23)
[2021-03-22] MEDS: ATORVASTATIN 40 MG TAB PO SCH (20:24)
[2021-03-23] MEDS: JEVITY 1.2 CAL LIQUID 1,000 ML BOT FT SCH ×3 (00:04→12:00)
[2021-03-23] MEDS: METHYLPREDNISOLONE 40 MG INJ IV SCH ×2 (00:22→08:27)
[2021-03-23 05:27] VITALS: TEMP 97.5
[2021-03-23 05:50] LABS: Blood O2 Saturation 81.5 % (92-98.5)
[2021-03-23 06:58] LABS: Protime INR 1.4
[2021-03-23 07:04] LABS: ALT/SGPT 183 U/L (12-78); AST/SGOT 109 U/L (15-37); Albumin 3.1 g/dL (3.4-5.0); Alkaline Phosphatase 175 U/L (45-117); BUN Blood Urea Nitrogen 32 mg/dL (7-18); Bicarbonate 33 mmol/L (21-32); Bilirubin Total 2.1 mg/dL (0.2-1.0); Glucose Level 134 mg/dL (74-106); Magnesium 2.6 mg/dL (1.8-2.4); Phosphorus 2.9 mg/dL (2.5-4.9); Potassium 3.5 mmol/L (3.5-5.1); Protein, Total 6.9 g/dL (6.4-8.2); Sodium Level 143 mmol/L (136-145)
[2021-03-23] MEDS ORDERED: propofoL 1,000 MG/100 ML VIAL IV ONE (07:12)
[2021-03-23] MEDS ORDERED: RSI MEDICATION KIT IV ONE (07:16)
[2021-03-23 07:17] LABS: Ferritin 3291.4 ng/mL (26-388)
[2021-03-23] MEDS ORDERED: propofoL 1,000 MG/100 ML VIAL IV PRN (07:28)
[2021-03-23] MEDS ORDERED: HALOPERIDOL LACT 5 MG/ML INJ IV PRN (07:28)
[2021-03-23] MEDS ORDERED: MIDAZOLAM HCL 2 MG/2 ML INJ IV PRN (07:28)
[2021-03-23] MEDS ORDERED: LORazepam 2 MG/ML VIAL IV PRN (07:28)
[2021-03-23] MEDS ORDERED: NA CHLORIDE 0.9% 250 ML IV PRN (07:28)
[2021-03-23] MEDS ORDERED: FENTANYL CITR 100 MCG/2 ML IV PRN (07:28)
[2021-03-23] MEDS ORDERED: LORazepam 2 MG/ML VIAL ONE (07:38)
[2021-03-23] MEDS ORDERED: FENTANYL CITR 100 MCG/2 ML ONE (07:50)
[2021-03-23] MEDS ORDERED: MIDAZOLAM HCL 2 MG/2 ML INJ ONE (07:54)
[2021-03-23] MEDS ORDERED: CISATRACURIUM INJECTION 2 MG/ML (10 ML Vial) IV ONE (08:07)
[2021-03-23] MEDS ORDERED: HYDROMORPHONE HCL 2 MG/ML inj IV PRN (08:08)
[2021-03-23] MEDS ORDERED: CISATRACURIUM BESYLATE 40 MG in NA CHLORIDE 0.9% 80 ML IV PRN (08:09)
[2021-03-23] MEDS: VITAMIN D 1000 UNIT TAB PO SCH (08:27)
[2021-03-23] MEDS: THIAMINE HCL 100 MG TABLET PO SCH (08:27)
[2021-03-23] MEDS: ZINC SULFATE 220 MG CAP PO SCH (08:28)
[2021-03-23] MEDS: ASCORBIC ACID 500 MG TABLET PO SCH (08:28)
[2021-03-23] MEDS: ASPIRIN 81 MG CHEWABLE TABLET PO SCH (08:28)
[2021-03-23] MEDS: FAMOTIDINE 20 MG TAB PO SCH (08:28)
[2021-03-23] MEDS: APIXABAN 5 MG TABLET PO SCH (08:28)
[2021-03-23] MEDS: SPIRONOLACTONE 25 MG TABLET PO SCH (08:28)
[2021-03-23 08:29] VITALS: BP 128/86
[2021-03-23] MEDS ORDERED: METOPROLOL TARTRATE 5 MG/5 ML INJ IV STA (08:35)
[2021-03-23] MEDS ORDERED: SUCCINYLCHOLINE 20 MG/ML (10 ML) IV ONE (08:43)
--- NOTE | 2021-03-23 09:00 | RAD REPORT ---
EXAM DESCRIPTION: RAD - Chest Single View - 03/23/2021 5:56 am CLINICAL HISTORY: COVID, eval opacities/edema/effusion Chest pain. COMPARISON: Abdomen 1 View (KUB) dated 03/22/2021; Chest Single View dated 03/22/2021; Chest Single Vi ew dated 03/21/2021; Chest Single View dated 03/20/2021 FINDINGS: Portable technique limits examination quality. Extensive bilateral pulmonary opacities are again noted, mildly progressive on the left since the com parative study from yesterday. Heart size mildly prominent. Enteric tube appears coiled in the stomac h. IMPRESSION: Mild worsening in left lung aeration since yesterday's study.
[2021-03-23] MEDS ORDERED: EPINEPHrine 1 MG/10 ML SYR IV ONE (09:35)
[2021-03-23] MEDS ORDERED: NA CHLORIDE 0.9% 1,000 ML IV ONE (09:35)
[2021-03-23] MEDS ORDERED: ATROPINE SULF 1 MG/10 ML SYR IV ONE (09:35)
--- NOTE | 2021-03-23 09:36 | RAD REPORT ---
EXAM DESCRIPTION: RAD - Chest Single View - 03/23/2021 7:53 am CLINICAL HISTORY: intubated Chest pain. COMPARISON: Chest Single View dated 03/23/2021; Abdomen 1 View (KUB) dated 03/22/2021; Chest Single Vi ew dated 03/22/2021; Chest Single View dated 03/21/2021 FINDINGS: Portable technique limits examination quality. Extensive bilateral pulmonary opacities are present. Tip of the endotracheal tube is about 2 cm above the level of the aortic arch. The heart is normal in size. Enteric tube descends into the upper abdo men.The ICU was notified.
[2021-03-23] MEDS: IVERMECTIN 3 MG TABLET PO SCH (10:00)
--- NOTE | 2021-03-23 10:04 | P.PN ---
Subjective Date of Service: 03/23/21 (TV) Primary Care Provider: Unknown, cardiology Dr. Pritchett Chief Complaint: COVID-19 pneumonia Worse Pt intubated today, very agitated Review of Systems is unable to be obtained Physical Examination - Vital Signs Temperature: 97.5 F Blood Pressure: 128/86 Pulse: 127 Respirations: 34 Pulse Ox (%): 84 Assessment & Plan - Problems (Diagnosis) (1) COVID Current Visit: Yes Status: Acute Plan: Severe COVID, pt intubated, Advance Et tube/on PC 15 of PEEP,labs reviewed. DW nurse/ FT, Start on nimbex drip, maxed out on drips stillagitated/ prognosis very poor/ CPR in progress Patient
[2021-03-23 12:44] VITALS: O2SAT 84
[2021-03-23] MEDS ORDERED: METHYLPREDNISOLONE 125 MG INJ IV SCH (17:00)
--- NOTE | 2021-03-23 18:07 | P.DS ---
Admission Date: 03/18/21 Discharge Date: 03/23/21 Primary Care Provider: Unknown, cardiology Dr. Pritchett Disposition: Discharge Condition: Reason for Admission: COVID-19 pneumonia Consultations: Pulmonology - Dr. Delgado Procedures: Problem list Acute hypoxemic respiratory failure secondary to bilateral COVID-19 pneumonia complicated with history of asthma/pulmonary fibrosis DIC related to COVID-19 pneumonia Hypertension Hepatic steatosis h/o pulmonary fibrosis History of valve replacement earlier this year Brief History of Present Illness: 70-year-old male with history of hypertension, asthma, valve replacement approximately 1 month ago presents the emergency department for shortness of breath. Patient reports testing positive for Covid on 03/11/2021. Upon arrival to the [place] patient was saturating 64% on room air, patient was placed on high flow oxygen, currently saturating between 88 and 92% on 100% FiO2 at 40 L on high flow. Labs were significant for potassium 3.4 BUN 33 GFR 66 ferritin 4083 AST 131 ALT 123 troponin 0 0.06 C-reactive protein 56.7 procalcitonin 0.08 white blood cell count within normal limits. Patient given Solu-Medrol in the emergency department, ED provider wishes to admit for further evaluation and management. Attempted transfer to tertiary centers but was declined due to capacity. Chest x-ray demonstrates multifocal pneumonia, patient with history of pulmonary fibrosis. Discussed advanced directives with patient at length, at this time we will proceed with full code, patient to make further decisions about wishes for possible DO NOT INTUBATE in the future. Hospital Course: Patient was admitted to the hospital requiring BiPAP with FiO2 of 100%. He had significant bilateral pulmonary opacities consistent with severe Covid 19 pneumonia. Patient was treated per our COVID-19 protocol. He was unable to receive Baricitinib per pharmacy due to low CRP and elevated LFTs. He continued to require 100% FiO2 on BIPAP and would quickly/easily become hypoxic to the 70s with minimal movement in his bed. He was unable to tolerate coming off the BiPAP mask for more than a few seconds to get sips of Ensure in. His ferritin on admission was over 4000 and peaked over 5000. His D-dimer continued to increase over 50,000 consistent/concerning for DIC related to his COVID-19 infection. Despite our maximum efforts, the patient continued to worsen and become more hypoxic. Patient was again asked for his preference regarding his CODE STATUS/intubation. He had a family meeting with his daughters on 03/22. He ultimately decided to continue as a full code and stated he would be okay to be intubated as a last r esort only. On the morning of 03/23, patient was remaining hypoxic in the low 80s on 100% FiO2 of BiPAP. An ABG was performed and showed a PO2: 40. He underwent intubation without any complications. While on the ventilator, the patient became more tachycardic, and rhythm flipped into A. fib in the 180s, blood pressure 130s/70s. He was given 5mg IV lopressor with some improvement. His rhythm then became more junctional, then he went into V. tach. Patient's pulse was then lost and a CODE BLUE was initiated. Patient was then coded for ~35 minutes with no ROSC undergoing multiple rounds of epi/shock/CPR for vtach/PEA. With the beginning of the code, there was quite a bit of blood and bloody secretions coming through the endotracheal tube. The family was contacted and informed of the situation. The code was called at 0936 Vital Signs/Physical Exam: . Temp Pulse Resp BP Pulse Ox 97.5 F 127 H 34 H 128/86 84 L 03/23/21 10:04 03/23/21 10:04 03/23/21 10:04 03/23/21 10:04 03/23/21 10:04 Laboratory Data at Discharge: WBC 14.30 K/uL (4.3-10.9) H D 03/22/21 04:35 Hgb 15.2 g/dL (13.6-17.9) 03/22/21 04:35 Hct 44.8 % (39.6-49.0) 03/22/21 04:35 Plt Count 163 K/uL (152-406) 03/22/21 04:35 PT 16.2 SECONDS (9.5-12.5) H 03/23/21 05:29 INR 1.40 03/23/21 05:29 APTT 22.5 SECONDS (24.3-36.9) L 03/22/21 11:12 Sodium 143 mmol/L (136-145) 03/23/21 05:29 Potassium 3.5 mmol/L (3.5-5.1) 03/23/21 05:29 BUN 32 mg/dL (7-18) H 03/23/21 05:29 Creatinine 0.63 mg/dL (0.55-1.3) 03/23/21 05:29 Glucose 134 mg/dL (74-106) H 03/23/21 05:29 Phosphorus 2.9 mg/dL (2.5-4.9) 03/23/21 05:29 Magnesium 2.6 mg/dL (1.8-2.4) H 03/23/21 05:29 Total Bilirubin 2.1 mg/dL (0.2-1.0) H 03/23/21 05:29 AST 109 U/L (15-37) H 03/23/21 05:29 ALT 183 U/L (12-78) H 03/23/21 05:29 Alkaline Phosphatase 175 U/L (45-117) H 03/23/21 05:29 Troponin I 0.03 ng/mL (0.0-0.045) 03/19/21 10:52 Triglycerides 65 mg/dL (<150) 03/19/21 04:42 Cholesterol 135 mg/dL (<200) 03/19/21 04:42 HDL Cholesterol 36 mg/dL (40-60) L 03/19/21 04:42 Cholesterol/HDL Ratio 3.75 03/19/21 04:42 Lipase 50 U/L (73-393) L 03/18/21 14:04 Home Medications: Albuterol Inhaler [Ventolin Inhaler*] 2 puff IH TID PRN 03/19/21 Amlodipine Besylate 1 tab PO BEDTIME 03/19/21 Aspirin [Aspirin EC 81 MG] 1 tab PO DAILY 03/19/21 Atorvastatin Calcium 1 tab PO DAILY 03/19/21 Fluticasone [Flonase 50MCG Nasal [place]*] 2 sprays SILVANA DAILY 03/19/21 Furosemide 1 tab PO DAILY 03/19/21 Potassium Chloride 1 tab PO DAILY 03/19/21 Followup: Unknown,U [Primary Care Provider] - Time spent managing pt's care (in minutes): 100
--- NOTE | 2021-03-24 12:40 | EKG ---
Test Date: 2021-03-23 Test Time: 08:59:14 [employer]shore [employer]sea War[employer] Officer: MG MEASUREMENT RESULTS: Intervals: Rate: 42 HI: QRSD: 156 QT: 476 QTc: 397 [place]: P: HI: QRS: 99 T: 92 INTERPRETIVE STATEMENTS: Wide QRS rhythm with occasional premature ventricular complexes Right bundle branch block Abnormal ECG Compared to ECG 03/21/2021 18:01:29 Uncertain supraventricular rhythm now present Right bundle-branch block now present Sinus rhythm no longer present Atrial premature complex(es) no longer present ST (T wave) deviation no longer present Possible ischemia no longer present Prolonged QT interval no longer present Electronically Signed On 03-24-21 12:37:42 CDT by Kvng Bailey
--- NOTE | 2021-03-24 12:41 | EKG ---
Test Date: 2021-03-21 Test Time: 18:01:29 Diving Supervisor: VASILIY MEASUREMENT RESULTS: Intervals: Rate: 88 UT: 140 QRSD: 108 QT: 448 QTc: 542 [place]: P: 49 UT: 140 QRS: 31 T: 23 INTERPRETIVE STATEMENTS: Sinus rhythm with premature supraventricular complexes with frequent premature ventricular complexes ST & T wave abnormality, consider lateral ischemia Prolonged QT Abnormal ECG Compared to ECG 03/21/2021 18:00:02 Atrial premature complex(es) now present ST (T wave) deviation now present Possible ischemia now present Fusion complex(es) no longer present Electronically Signed On 03-24-21 12:37:53 CDT by Kvng Bailey
--- NOTE | 2021-03-24 12:41 | EKG ---
Test Date: 2021-03-21 Test Time: 18:00:02 Athletic Turf Worker: VASILIY MEASUREMENT RESULTS: Intervals: Rate: 87 LA: 158 QRSD: 104 QT: 422 QTc: 507 [place]: P: 75 LA: 158 QRS: 32 T: 37 INTERPRETIVE STATEMENTS: Sinus rhythm and premature ventricular complexes or fusion complexes Prolonged QT Abnormal ECG Compared to ECG 03/18/2021 13:52:35 Fusion complex(es) now present Prolonged QT interval now present Electronically Signed On 03-24-21 12:37:54 CDT by Kvng Bailey
== END 2021-03-23 09:36 | disposition expired | DRG 208 ==
LOC: ER 13:14 → ERHOLD 21:16 → 3RD-ICU 03-19 15:40
PROVIDERS: ADMIT Hospitalist; ATTEND Hospitalist
PROC: 5A09357 Assistance with Respiratory Ventilation, Less than 24 Consecutive Hours, Continuous Positive Airway Pressure (ICD-10-PCS; principal; 2021-03-19)
PROC: 5A1935Z Respiratory Ventilation, Less than 24 Consecutive Hours (ICD-10-PCS; 2021-03-23)
PROC: 5A12012 Performance of Cardiac Output, Single, Manual (ICD-10-PCS; 2021-03-23)
PROC: 0BH17EZ Insertion of Endotracheal Airway into Trachea, Via Natural or Artificial Opening (ICD-10-PCS; 2021-03-23)
DX: U07.1 COVID-19 (principal); J12.82 Pneumonia due to coronavirus disease 2019; J96.01 Acute respiratory failure with hypoxia; D65 Disseminated intravascular coagulation [defibrination syndrome]; I47.2 Ventricular tachycardia; E87.0 Hyperosmolality and hypernatremia; J45.909 Unspecified asthma, uncomplicated; J84.10 Pulmonary fibrosis, unspecified; I48.91 Unspecified atrial fibrillation; I10 Essential (primary) hypertension; K76.0 Fatty (change of) liver, not elsewhere classified; Z95.2 Presence of prosthetic heart valve; I46.9 Cardiac arrest, cause unspecified
CPT/HCPCS: 36415; 71045; 74018; 76705; 80048; 80053; 80061; 80076; 81003; 81015; 82728; 82805; 82947; 83605; 83690; 83735; 84100; 84145; 84439; 84443; 84484; 85025; 85379; 85384; 85610; 85730; 86140; 87040; 87070; 87081; 87804; 93005; 94002; 94003; 94660; 94760; 96372; 96374; 96375; 99285; J0171; J0330; J0456; J1630; J1940; J2250; J2704; J2920; J2930; J3010; J7030; J7040; J7050